=== PATIENT | female | born 1970 | race Caucasian/White ===

== ENCOUNTER 2020-06-04 09:54 | Outpatient (CLI) | payer BC ==
--- NOTE | 2020-06-04 10:59 | ULT ---
EXAM: US Breast Limited Lt PROVIDED CLINICAL HISTORY: Left breast palpable abnormality COMPARISON: Concurrently performed diagnostic mammogram FINDINGS: Limited sonographic interrogation was performed of the left breast in the region of palpable concern. The sonographic appearance of the breast tissue in this region is normal. IMPRESSION: No sonographic abnormality is evident in the region of clinical concern. Negative imaging findings sh ould not preclude further evaluation of a clinically suspicious finding. Patient is referred back to her clinician.
--- NOTE | 2020-06-04 11:01 | ULT ---
EXAM: US Breast Limited Rt PROVIDED CLINICAL HISTORY: Clear right breast discharge COMPARISON: Concurrently performed diagnostic mammogram FINDINGS: Limited sonographic interrogation was performed of the right breast in the retroareolar region. The s onographic appearance of the breast tissue in this region is normal. There is no evidence for ductal dilatation. IMPRESSION: No sonographic abnormality to explain the patient's discharge. Negative imaging findings should not p reclude further evaluation of a clinically suspicious finding, such as surgical consultation and/or breast MRI. Patient is referred back to her clinician. BI-RADS 1 -- negative findings (within normal)
--- NOTE | 2020-06-04 11:01 | MMO ---
Bilateral MAMMO Bilat Diag [facility]. CLINICAL HISTORY: Patient is 49 years old and is seen for diagnostic exam,lump or thickening in the outer region of the left breast, non-bloody discharge in the right breast and pain in the outer region of the left breast. The patient has no family history of breast cancer. The patient has no personal history of cancer. The patient has a history of bilateral Breast reduction in 1990. VIEWS: The views performed were: bilateral craniocaudal with tomosynthesis; bilateral mediolateral oblique with tomosynthesis; and bilateral mediolateral with tomosynthesis. FILMS COMPARED: The present examination has been compared to a prior imaging study performed at [facility] on 06/04/2020. This study has been interpreted with the assistance of computer-aided detection. MAMMOGRAM FINDINGS: There are scattered fibroglandular densities. There are no suspicious masses, suspicious calcifications, or areas of architectural distortion. There are no mammographic or sonographic abnormalities in the area of palpable concern on the left. The patient is referred back to her clinician. Negative imaging findings should not preclude biopsy if clinical findings are suspicious. There are no mammographic or sonographic abnormalities to explain the patient's reported right nipple discharge. The patient is referred back to her clinician. Negative imaging findings should not preclude further evaluation if clinical findings are suspicious. IMPRESSION: THERE ARE NO MAMMOGRAPHIC OR SONOGRAPHIC ABNORMALITIES IN THE AREA OF PALPABLE CONCERN ON THE LEFT. THE PATIENT IS REFERRED BACK TO HER CLINICIAN. NEGATIVE IMAGING FINDINGS SHOULD NOT PRECLUDE BIOPSY IF CLINICAL FINDINGS ARE SUSPICIOUS. THERE ARE NO MAMMOGRAPHIC OR SONOGRAPHIC ABNORMALITIES TO EXPLAIN THE PATIENT'S REPORTED RIGHT NIPPLE DISCHARGE. THE PATIENT IS REFERRED BACK TO HER CLINICIAN. NEGATIVE IMAGING FINDINGS SHOULD NOT PRECLUDE FURTHER EVALUATION IF CLINICAL FINDINGS ARE SUSPICIOUS. THE RESULTS OF THIS EXAM WERE SENT TO THE PATIENT. ACR BI-RADS Category 1 - Negative MAMMOGRAPHY NOTE: 1. A negative mammogram report should not delay a biopsy if a dominant of clinically suspicious mass is present. 2. Approximately 10% to 15% of breast cancers are not detected by mammography. 3. Adenosis and dense breasts may obscure an underlying neoplasm. Reported by: MAYANK CURIEL MD Electonically Signed: [id number]
== END 2020-06-04 09:55 | disposition home or self-care (01) ==
LOC: BICMAMMO 09:54
PROVIDERS: ATTEND Student in an Organized Health Care Education/Training Program
DX: N63.20 Unspecified lump in the left breast, unspecified quadrant (principal)
CPT/HCPCS: 77066; G0279